=== PATIENT | male | born 1975 | race Caucasian/White ===

== ENCOUNTER 2021-06-01 14:56 | Emergency (ER) | payer SELFPAY ==
[~2021-06-01] VITALS: Ht 172.7 cm; Wt 82.0 kg
[2021-06-01] MEDS ORDERED: TOPUD MT (19:43)
[2021-06-01] MEDS ORDERED: ACETAMINOPHEN 325MG TABLET PO ONE (19:45)
[2021-06-01 20:00] VITALS: BP 144/71
== END 2021-06-01 20:07 | disposition home or self-care (01) ==
LOC: ER 14:56
DX: M54.5 Low back pain (principal); M54.2 Cervicalgia; F10.10 Alcohol abuse, uncomplicated; Y90.9 Presence of alcohol in blood, level not specified
CPT/HCPCS: 71045; 93005; 99283